=== PATIENT | male | born 1940 | race Caucasian/White ===

== ENCOUNTER 2021-12-28 08:00 | Outpatient (CLI) | payer MEDICARE, OTHER ==
[2021-12-28 18:11] LABS: CALCIUM 8.8 mg/dL (8.5-10.3)
== END 2021-12-28 23:59 | disposition home or self-care (01) ==
LOC: LAB.N 08:00
PROVIDERS: ATTEND Physician Assistant Medical
DX: U07.1 COVID-19 (principal)
CPT/HCPCS: 36415; 80048